=== PATIENT | female | born 1970 | race Caucasian/White ===

== ENCOUNTER 2016-12-28 16:43 | Emergency (ER) | payer OTHER ==
[~2016-12-28] VITALS: Ht 162.6 cm; Wt 56.7 kg
--- NOTE | 2016-12-28 16:50 | NUR ---
PT [id number] FROM STREET: FACE/BACK PAIN S/P TRIP AND FALL. VSS. AWAITING MD ORDER. PT PLACED IN COMFORTABLE POSITION. SAFETY MEASURES OBSERVED
[2016-12-28] MEDS ORDERED: ACETAMINOPHEN ES 500 MG TABLET ONE (16:51)
[2016-12-28] MEDS ORDERED: ACETAMINOPHEN ES 500 MG TABLET PO ONE (17:00)
--- NOTE | 2016-12-28 17:16 | NUR ---
PT TAKEN TO CT VIA [facility]
[2016-12-28] MEDS ORDERED: TDAP [DIPH/PERTUSSIS/TET] 0.5 ML VIAL IM ONE ×2 (18:00→18:01)
[2016-12-28 18:12] VITALS: BP 128/70
== END 2016-12-28 18:16 | disposition home or self-care (01) ==
LOC: ER 16:45
DX: S00.83XA Contusion of other part of head, initial encounter (principal); W01.198A Fall on same level from slipping, tripping and stumbling with subsequent striking against other object, initial encounter; Y93.89 Activity, other specified; Y92.481 Parking lot as the place of occurrence of the external cause; Y99.9 Unspecified external cause status
CPT/HCPCS: 70486-TC; 90715; A4606; A6402; Z7610